=== PATIENT | female | born 1985 | race Hispanic/Latino ===

== ENCOUNTER 2019-12-30 22:25 | Emergency (ER) | payer MEDICAID, OTHER ==
[2019-12-30] MEDS ORDERED: LIDOCAINE HCL 1% 20 ML VIAL ONE (23:38)
[2019-12-31] MEDS ORDERED: KETOROLAC TROMETHAMINE 60 MG/2 ML VIAL ONE (00:25)
[2019-12-31] MEDS ORDERED: SULFAMETHOX-TMP DS 800/160 TAB ONE (00:25)
== END 2019-12-31 01:18 | disposition home or self-care (01) ==
LOC: EDH 22:25
DX: L02.412 Cutaneous abscess of left axilla (principal); Z90.49 Acquired absence of other specified parts of digestive tract
CPT/HCPCS: 10060; 87070; 87076; 87077; 87186; 99283; J1885